=== PATIENT | male | born 1995 | race Caucasian/White ===

== ENCOUNTER 2018-02-11 01:29 | Emergency (ER) | payer SELFPAY ==
[2018-02-11 03:48] LABS: ABSOLUTE EOSINOPHILS # (AUTO) 0.2 10^3/uL (0.0-0.6); ABSOLUTE LYMPHOCYTES (AUTO) 4.3 10^3/uL (0.5-4.7); ABSOLUTE MONOCYTES (AUTO) 0.8 10^3/uL (0.1-1.4); ABSOLUTE NEUT (AUTO) 4.3 10^3/uL (1.7-8.2); BASOPHILS % (AUTO) 0.2 % (0-2); EOSINOPHILS % (AUTO) 2.3 % (0-6); HEMATOCRIT 46.1 % (37.9-51.0); HEMOGLOBIN 15.9 g/dL (13.5-17.0); LYMPHOCYTES % (AUTO) 44.5 % (13-45); MEAN CORPUSCULAR HEMOGLOBIN 31.1 pg (27.0-33.4); MEAN CORPUSCULAR HGB CONC 34.5 g/dL (32.0-36.0); MEAN CORPUSCULAR VOLUME 90 fl (80-97); MONOCYTES % (AUTO) 8.2 % (3-13); PLATELET COUNT 273 10^3/uL (150-450); RED BLOOD COUNT 5.13 10^6/uL (4.35-5.55); RED CELL DISTRIBUTION WIDTH 14.6 % (11.5-14.0); SEGMENTED NEUTROPHILS % (AUTO) 44.8 % (42-78); TOTAL CELLS COUNTED % (AUTO) 100 %; WHITE BLOOD COUNT 9.7 10^3/uL (4.0-10.5)
[2018-02-11 03:59] LABS: APPEARANCE,URINE CLEAR; BILIRUBIN,URINE NEGATIVE (NEGATIVE); COLOR,URINE STRAW; GLUCOSE, URINE NEGATIVE (NEGATIVE); KETONES,URINE NEGATIVE (NEGATIVE); LEUKOCYTE ESTERASE,URINE NEGATIVE (NEGATIVE); NITRITE,URINE NEGATIVE (NEGATIVE); PROTEIN,URINE NEGATIVE (NEGATIVE); URINE SPECIFIC GRAVITY 1.014; UROBILINOGEN,URINE NEGATIVE mg/dL (<2.0)
[2018-02-11 04:06] LABS: ALANINE AMINOTRANSFERASE 27 U/L (21-72); ALKALINE PHOSPHATASE 58 U/L (38-126); ANION GAP 16 (5-19); ASPARTATE AMINO TRANSFERASE 28 U/L (17-59); BILIRUBIN,DIRECT 0.2 mg/dL (0.0-0.4); BILIRUBIN,TOTAL 0.6 mg/dL (0.2-1.3); BLOOD UREA NITROGEN 16 mg/dL (7-20); CALCIUM 9.9 mg/dL (8.4-10.2); CARBON DIOXIDE 26 mmol/L (22-30); CHLORIDE 103 mmol/L (98-107); GLUCOSE 79 mg/dL (75-110); SODIUM 144.9 mmol/L (137-145); TOTAL PROTEIN 7.8 g/dL (6.3-8.2)
[2018-02-11 04:13] LABS: ACETAMINOPHEN < 10 ug/mL (10-30); ALCOHOL < 10 mg/dL (NONE DETECTED); SALICYLATE < 1.0 mg/dL (2.0-20.0)
[2018-02-11 04:15] LABS: URINE AMPHETAMINES SCREEN NEGATIVE; URINE BARBITURATES SCREEN NEGATIVE; URINE BENZODIAZEPINES SCREEN NEGATIVE; URINE COCAINE SCREEN NEGATIVE; URINE MARIJUANA (THC) SCREEN NEGATIVE; URINE METHADONE SCREEN NEGATIVE; URINE PHENCYCLIDINE SCREEN NEGATIVE
--- NOTE | 2018-02-11 06:51 | ER Document Report ---
ED Substance Abuse / Acc. OD - General Mode of Arrival: Ambulatory Information source: Patient Cannot obtain history due to: Unstable vital signs <IDALIA MARTINEZ - Last Filed: 02/11/18 06:51> <STERLING RAMOS - Last Filed: 02/11/18 13:40> <JUANITA VALENZUELA - Last Filed: 02/11/18 13:50> - General Chief Complaint: Alcohol Withdrawl Stated Complaint: SUBSTANCE ABUSE Time Seen by Provider: 02/11/18 02:28 Notes: Patient is an otherwise healthy 22-year-old male who presents to the emergency department with chief complaint of suicidal ideations. Patient reports that he is "ready to end it all". Patient reports he moved down here from [facility]. Patient reports he just got in his car and started driving and ended up here. Patient denies having any friends or family in the area. Patient reports he has now lost his vehicle due to being in nursing home for possession and his vehicle being confiscated by the police, patient reports he has no job no family no friends. Patient reports he has nothing to live for. Patient reports he drinks heavily every day, patient reports he used to use crystal meth and/or heroin but reports that he has been clean for a few months now. Patient reports his last drink was 2 days ago. Patient reports he feels hopeless and was thinking about jumping in front of a car. Patient denies any homicidal ideation, denies hearing any voices. (IDALIA MARTINEZ) Past Medical History - General Information source: Patient - Social History Smoking Status: Current Every Day Smoker Chew tobacco use (# tins/day): No Frequency of alcohol use: Heavy Drug Abuse: Heroin, Marijuana, Methamphetamine Patient has suicidal ideation: Yes Patient has homicidal ideation: No - Medical History Medical History: Negative Renal/ Medical History: Denies: Hx Peritoneal Dialysis Surgical Hx: Negative - Immunizations Hx Diphtheria, Pertussis, Tetanus Vaccination: No <IDALIA MARTINEZ - Last Filed: 02/11/18 06:51> - Social History Smoking Status: Unknown if Ever Smoked - unknown if ever smoked Family History: None <STERLING RAMOS - Last Filed: 02/11/18 13:40> Review of Systems - Review of Systems Constitutional: No symptoms reported EENT: No symptoms reported Cardiovascular: No symptoms reported Respiratory: No symptoms reported Gastrointestinal: No symptoms reported Genitourinary: No symptoms reported Male Genitourinary: No symptoms reported Musculoskeletal: No symptoms reported Skin: No symptoms reported Hematologic/Lymphatic: No symptoms reported Neurological/Psychological: See HPI <IDALIA MARTINEZ - Last Filed: 02/11/18 06:51> Physical Exam <IDALIA MARTINEZ - Last Filed: 02/11/18 06:51> <STERLING RAMOS - Last Filed: 02/11/18 13:40> <JUANITA VALENZUELA - Last Filed: 02/11/18 13:50> - Vital signs Vitals: Temp Pulse Resp BP Pulse Ox 97.8 F 67 18 115/84 98 02/11/18 01:41 02/11/18 01:41 02/11/18 01:41 02/11/18 01:41 02/11/18 01:41 - Notes Notes: PHYSICAL EXAMINATION: GENERAL: Well-appearing, well-nourished and in no acute distress. HEAD: Atraumatic, normocephalic. EYES: Pupils equal round and reactive to light, extraocular movements intact, sclera anicteric, conjunctiva are normal. ENT: Nares patent, oropharynx clear without exudates. Moist mucous membranes. NECK: Normal range of motion, supple without lymphadenopathy LUNGS: Breath sounds clear to auscultation bilaterally and equal. No wheezes rales or rhonchi. HEART: Regular rate and rhythm without murmurs ABDOMEN: Soft, nontender, nondistended abdomen. No guarding, no rebound. No masses appreciated. Musculoskeletal: Normal range of motion, no pitting or edema. No cyanosis. NEUROLOGICAL: Cranial nerves grossly intact. Normal speech, normal gait. Normal sensory, motor exams PSYCH: Calm, cooperative and tearful. SKIN: Warm, Dry, normal turgor, no rashes or lesions noted. (IDALIA MARTINEZ) Course - Laboratory Result Diagrams: 02/11/18 03:25 02/11/18 03:25 <IDALIA MARTINEZ - Last Filed: 02/11/18 06:51> - Laboratory Result Diagrams: 02/11/18 03:25 02/11/18 03:25 <STERLING RAMOS - Last Filed: 02/11/18 13:40> - Laboratory Result Diagrams: 02/11/18 03:25 02/11/18 03:25 <JUANITA VALENZUELA - Last Filed: 02/11/18 13:50> - Re-evaluation Re-evalutation: Patient's physical examination is unremarkable. Blood work, urinalysis and EKG are all within normal limits. Tox screen is negative. Patient medically cleared at this time. Patient will be waiting for psych provider to evaluate him in the morning. (IDALIA MARTINEZ) - Vital Signs Vital signs: Temp Pulse Resp BP Pulse Ox 98.1 F 64 18 118/76 97 02/11/18 11:41 02/11/18 11:41 02/11/18 11:41 02/11/18 11:41 02/11/18 11:41 - Laboratory Laboratory results interpreted by me: 02/11/18 02/11/18 03:25 03:25 RDW 14.6 H Salicylates < 1.0 L Acetaminophen < 10 L Discharge <IDALIA MARTINEZ - Last Filed: 02/11/18 06:51> <STERLING RAMOS - Last Filed: 02/11/18 13:40> <JUANITA VALENZUELA - Last Filed: 02/11/18 13:50> - Discharge Clinical Impression: Substance abuse Condition: Stable Disposition: HOME, SELF-CARE Additional Instructions: You were seen in the ED and evaluated by the Medical and Behavioral Health Teams for suicidal ideation and determined to be appropriate for discharge at this time. You are recommended to follow up with [facility] upon discharge for assistance with substance abuse treatment. Patient was also provided resources for housing. CHRONIC ALCOHOLISM and ALCOHOL ABUSE: Your evaluation reveals evidence of chronic alcoholism, an addiction to alcohol. The tendency to alcoholism may be inherited. Chronic use of alcohol weakens muscles, causes fatty deposits in the liver , damages the stomach, makes you more prone to infections, and can cause defects in unborn children. In the long run, brain atrophy and cirrhosis of the liver result. You are also at greater risk for certain types of cancer, such as cancer of the mouth, throat, stomach, and liver. Counselling services are available to help you. In-hospital treatment programs often help. Support groups such as Alcoholics Anonymous can be very useful in beating this addiction. Your physician can make a referral for you. As alcoholics often are prone to other addictions, you should discuss your use of any other medications with the doctor FOLLOW-UP CARE: If you have been referred to a physician for follow-up care, call the physician s office for an appointment as you were instructed or within the next two days. If you experience worsening or a significant change in your symptoms, notify the physician immediately or return to the Emergency Department at any time for re-evaluation.
--- NOTE | 2018-02-11 10:11 | ER Document Report ---
Doctor's Note Notes: 02/11/18 10:10 Rounds: Chart reviewed and patient interviewed. Patient says he has a long history of alcohol abuse. Also uses methamphetamine. Says he traveled here from [place] by car, but his car was confiscated by police when he was found to have drugs on board. Vital signs are all normal. Lab studies were all essentially normal. Patient says he has no place to go. Patient appears to be medically stable for transfer or discharge. Irvin Villa MD
--- NOTE | 2018-02-11 12:20 | EKG REPORT ---
SEVERITY:- NORMAL ECG - SINUS RHYTHM : Confirmed by: Ciara Alexander MD 11-Feb-2018 12:20:11
[2018-02-11 13:57] VITALS: BP 118/75
--- NOTE | 2018-02-11 14:39 | PSYCHOLOGICAL NOTE ---
Psych Note - Psych Note Psych Note: Reason for Consult: Suicidal Ideation Consent for Permissions: Patient declined to give any information for collateral contacts. Patient states that he has no family/friends to contact. Patient says he has a long history of alcohol use. Says he traveled here from [place] by car, but his car was confiscated by police when he was found to have drugs on board. Pt presented to ED for suicidal ideation but has no current plan, intent or means. Pt reports that he was living in [place] with his GF until recently.They broke up and he got in his car and started driving with no particular destination in mind. Pt. reports he landed in [place] and was arrested in [place] for drugs and they confiscated his car. Court date is June 2018. Pt hitchhiked to [place], [place]. Patient has no social support. Patient reports that he is interested in sobriety. No prior mental health diagnosis. Released from [facility] 3 weeks ago. Behavioral Health Team contacted [facility] and all [facility] facilities. There is currently no bed availability. Patient was alert, oriented to person, place, time and circumstance. Mood was hopeful and optimistic. Patient endorsed passive suicidal ideation ie no plans, means or intent. Patient denies homicidal ideation. Delusions are absent. Patient presents with intact reality base presentation. Thought processes are organized, Linear. Eye contact was constant and focused. Conversational speech was a normal rate and tone. Intellectual abilities appear to be within the average range. Attention and conversation are good. Insight, judgment and impulse control is currently fair, however, due to substance abuse historically poor. No medication recommendations at this time. Diagnosis: 291.81 F10.239 Alcohol Withdrawal 303.90 (F10.20) Alcohol Use Disorder Impression/Plan: This patient is cleared from acute psychiatric services. Patient endorses passive suicidal ideation, no plans, means or intent. Patient came to [facility] for help in gaining sobriety; there are currently no beds available. Patient is recommended for substance abuse treatment and a soft hand off to [facility]. Patient does not meet IVC requirements per [place] GS 122.C. Dr. Foss was consulted on the care and management of this patient; attending physician is agreement with recommendations and disposition.
== END 2018-02-11 13:57 | disposition home or self-care (01) ==
LOC: ER 01:29
DX: F10.239 Alcohol dependence with withdrawal, unspecified (principal); F11.10 Opioid abuse, uncomplicated; F15.10 Other stimulant abuse, uncomplicated; F12.10 Cannabis abuse, uncomplicated; R45.851 Suicidal ideations; F17.200 Nicotine dependence, unspecified, uncomplicated
CPT/HCPCS: 36415; 80053; 80307; 81001; 85025; 93005; 93010; 99285

== ENCOUNTER 2018-06-01 11:23 | Emergency (ER) | payer SELFPAY ==
[2018-06-01 11:55] VITALS: BP 109/66
[2018-06-01] MEDS ORDERED: AZITHROMYCIN 250 MG TABLET PO ONE (12:19)
[2018-06-01] MEDS ORDERED: HYDROXYZINE PAMOATE 50 MG CAPSULE PO ONE (12:19)
[2018-06-01] MEDS ORDERED: LIDOCAINE 1% INJ-PF (10 MG/ML) 30 ML SDV INJ ONE (12:20)
[2018-06-01] MEDS ORDERED: CEFTRIAXONE INJ 250 MG VIAL IM ONE (12:20)
--- NOTE | 2018-06-01 12:20 | ER Document Report ---
HPI - HPI Time Seen by Provider: 06/01/18 11:40 Pain Level: 0 Notes: Patient presents with chief complaint of rash that has been ongoing for 2 years. Patient denies seeking any treatment for same. Patient reports he has not sure what it is. Patient also wants to be checked for sexually transmitted diseases as he states that his girlfriend told him she was positive for chlamydia. Patient himself denies any dysuria order urinary discharge. - CONSTITUTIONAL Constitutional: DENIES: Fever, Chills - EENT EENT: DENIES: Sore Throat, Ear Pain, Eye problems - NEURO Neurology: DENIES: Headache, Weakness, Vision blurred, Dizzinesss / Vertigo - CARDIOVASCULAR Cardiovascular: DENIES: Chest pain - RESPIRATORY Respiratory: DENIES: Trouble Breathing, Coughing - GASTROINTESTINAL Gastrointestinal: DENIES: Abdominal Pain, Black / Bloody Stools - URINARY Urinary: DENIES: Dysuria, Urgency, Frequency - MUSCULOSKELETAL Musculoskeletal: REPORTS: Extremity pain - L foot numb > 1wk Past Medical History - General Information source: Patient - Social History Smoking Status: Current Every Day Smoker Chew tobacco use (# tins/day): No Frequency of alcohol use: Social Drug Abuse: Cocaine, Marijuana, Methamphetamine Family History: None Patient has suicidal ideation: No Patient has homicidal ideation: No Renal/ Medical History: Denies: Hx Peritoneal Dialysis - Immunizations Hx Diphtheria, Pertussis, Tetanus Vaccination: No Vertical Provider Document - CONSTITUTIONAL Notes: PHYSICAL EXAMINATION: GENERAL: Disheveled well-nourished and in no acute distress. HEAD: Atraumatic, normocephalic. EYES: Pupils equal round extraocular movements intact, conjunctiva are normal. ENT: Nares patent NECK: Normal range of motion LUNGS: No respiratory distress Musculoskeletal: Normal range of motion NEUROLOGICAL: Normal speech, normal gait. PSYCH: Normal mood, normal affect. SKIN: Warm, Dry, normal turgor, scattered erythematous rash across the entire torso, back, genitals, bilateral arms and bilateral legs. Course - Re-evaluation Re-evalutation: Examination consistent with scabies. Patient will be placed on medication to treat the scabies. Patient discharged home in stable condition. Patient treated prophylactically with both Rocephin and azithromycin pending chlamydia and gonorrhea testing. - Vital Signs Vital signs: Temp Pulse Resp BP Pulse Ox 97.8 F 75 14 109/66 97 11/29/18 11:53 06/01/18 11:53 06/01/18 11:53 06/01/18 11:53 06/01/18 11:53 Discharge - Discharge Clinical Impression: Scabies Condition: Stable Disposition: HOME, SELF-CARE Additional Instructions: Scabies Your exam suggests the presence of scabies, which are microscopic parasites of the skin. These mites naye through the skin, causing severe itching. The mite can be spread to other persons by skin contact. All clothing, towels, and bedding should be washed in very hot water, set aside for a week, then washed again. You should apply scabies-killing lotion from the neck down, then wash it off after 12 hours. You may need medication for itching, as the itch persists for many days after the mites have been killed. All family members and close personal contacts should be examined. Repeat treatment may be necessary if the infestation is not eliminated with a single treatment. Call the doctor if you develop increasing swelling and redness, red streaks , tender lumps, fever, or drainage from a skin sore. Continue using Benadryl, you may take 25-50 mg every 6 hours for itching. You need to wash all of your linens, clothes or anything else that you have touched. Use the permethrin cream, once daily for the next 7 days then use it twice a week until your rash is completely gone. Anybody who you have been in close contact with may have been exposed to the scabies. They also need to purchase [id number] permethrin cream. There is no need for them to check into the emergency room or be seen by a doctor, they can buy this cream over the counter. Prescriptions: Permethrin [Acticin 5% Cream 60 gm] 2 applic TP DAILY 7 Days #10 applic
[2018-06-01 12:52] LABS: APPEARANCE,URINE SLIGHTLY-CLOUDY; BILIRUBIN,URINE NEGATIVE (NEGATIVE); COLOR,URINE YELLOW; GLUCOSE, URINE NEGATIVE (NEGATIVE); KETONES,URINE NEGATIVE (NEGATIVE); LEUKOCYTE ESTERASE,URINE NEGATIVE (NEGATIVE); NITRITE,URINE NEGATIVE (NEGATIVE); PROTEIN,URINE NEGATIVE (NEGATIVE); URINE SPECIFIC GRAVITY 1.027
[2018-06-01 14:30] LABS: CHLAM PCR DETECTED (NOT DETECT); GON PCR NOT DETECTED (NOT DETECT)
== END 2018-06-01 12:45 | disposition home or self-care (01) ==
LOC: ER 11:23
DX: B86 Scabies (principal); Z20.2 Contact with and (suspected) exposure to infections with a predominantly sexual mode of transmission; M79.672 Pain in left foot; R20.0 Anesthesia of skin; F17.200 Nicotine dependence, unspecified, uncomplicated
CPT/HCPCS: 99283; 96372; 81001; 87491; 87591; J3490; J0696